=== PATIENT | male | born 1940 | race Caucasian/White ===

== ENCOUNTER 2021-07-02 09:04 | Emergency (ER) | payer MEDICARE ==
[~2021-07-02] VITALS: Ht 167.6 cm; Wt 83.9 kg
[2021-07-02] MEDS ORDERED: LOVASTATIN40 MG PO (09:27)
[2021-07-02] MEDS ORDERED: LISINOPRIL20 MG PO (09:27)
--- NOTE | 2021-07-04 12:43 | EKG ---
[facility] [address] [facility] [place] [address] Signed AV dual-paced rhythm with prolonged AV conduction Abnormal ECG No previous ECGs available Confirmed by QUIN BRAN DO ([id number]) on 07/04/2021 12:42:52 PM Electronically Signed By: QUIN BRAN DO 07/04/21 1243 PATIENT NAME: ESTEPHANIA MICHELLE Electrocardiogram DATE OF : 42 PHYSICIAN: QUIN BRAN DO REPORT #: [id number] REPORT IS CONFIDENTIAL AND NOT TO BE RELEASED WITHOUT AUTHORIZATION
== END 2021-07-02 10:45 | disposition home or self-care (01) ==
LOC: ED 09:04
DX: R07.89 Other chest pain (principal); R53.1 Weakness; I25.2 Old myocardial infarction; E78.00 Pure hypercholesterolemia, unspecified; I10 Essential (primary) hypertension; Z20.822 Contact with and (suspected) exposure to COVID-19; Z79.899 Other long term (current) drug therapy; Z95.0 Presence of cardiac pacemaker
CPT/HCPCS: 71045; 80053; 83735; 84484; 85025; 99285-25; U0003